=== PATIENT | male | born 1980 | race Caucasian/White ===

== ENCOUNTER 2016-07-08 08:41 | Emergency (ER) | payer MEDICAID ==
[~2016-07-08] VITALS: Wt 69.0 kg
[2016-07-08] MEDS ORDERED: ACETAMINOPHEN 500 MG TAB PO STA (09:08)
--- NOTE | 2016-07-08 09:13 | ERD ---
ER Documentation Chief Complaint Date/Time DATE: 07/08/16 TIME: 09:12 Chief Complaint COUGH AND CONGESTION WITH FEVER FOR 2 DAYS. NO EAR PAIN, SORE THROAT NOTED HPI Patient is a 35-year-old male who presents with cough, congestion and fever for 2 days. He states that he also has headache. Denies abdominal pain, nausea, vomiting, diarrhea or constipation. Is tolerating fluids and urinating well and has normal bowel movements. He states that he has taken Robitussin and Tylenol for his symptoms, with minimal relief. He denies neck pain, stiffness. Denies chest pain, shortness of breath or difficulty breathing. Denies leg pain or swelling. Denies sick contacts. No other complaints. ROS All systems reviewed and are negative except as per history of present illness. Medications Home Meds Active Scripts Benzonatate* (Tessalon Perle*) 100 Mg Capsule, 100 MG PO Q8H Y for COUGH for 14 Days, CAP Prov:SHOCOLETARIANLAURA PA-C 07/08/16 Acetaminophen* (Tylophen*) 500 Mg Capsule, 1 CAP PO Q6H Y for PAIN AND OR ELEVATED TEMP, #20 CAP Prov:EMPERATRIZRIANLAURA PA-C 07/08/16 Oseltamivir Phosphate* (Tamiflu*) 75 Mg Capsule, 75 MG PO BID for 5 Days, CAP Prov:LAURA OJEDA PA-C 07/08/16 Allergies Allergies: Coded Allergies: No Known Allergy (Unverified , 07/08/16) PMhx/Soc History of Surgery: No Anesthesia Reaction: No Hx Neurological Disorder: No Hx Respiratory Disorders: No Hx Cardiac Disorders: No Hx Psychiatric Problems: No Hx Miscellaneous Medical Probl: No Hx Alcohol Use: No Hx Substance Use: No Hx Tobacco Use: No Smoking Status: Never smoker Physical Exam Vitals Vital Signs Date Time Temp Pulse Resp B/P Pulse Ox O2 Delivery O2 Flow Rate FiO2 07/08/16 10:25 100.3 91 18 119/59 98 07/08/16 10:00 100.5 07/08/16 08:44 102.0 112 21 139/70 98 Physical Exam GENERAL: Well-developed, well-nourished male. Appears in no acute distress. HEAD: Normocephalic, atraumatic. EYES: Pupils are equally reactive bilaterally. EOMs grossly intact. No conjunctival erythema. ENT: Moist mucous membranes. No uvula deviation. No kissing tonsils. No exudates. Bilateral TMs clear with no erythema or drainage. No mastoid tenderness NECK: Supple. No lymphadenopathy or thyromegaly. No meningismus. negative kernig. negative brudinski. LUNG: Clear to auscultation bilaterally. No rhonchi, wheezing, rales or coarse breath sounds. No retractions. HEART: Regular rate and rhythm. No murmurs, rubs or gallops. ABDOMEN: No scars, ecchymosis or rashes noted. Soft, nontender, and nondistended. Positive bowel sounds in all four quadrants. No rebound tenderness , no guarding. (-) McBurneys point tenderness. No CVA tenderness. BACK: No midline tenderness. Extremities: Equal pulses bilaterally. No peripheral clubbing, cyanosis or edema. No unilateral leg swelling. NEUROLOGIC: Alert and oriented. Moving all four extremities. 5/5 strength in all extremities. Normal speech. Steady gait. SKIN: Normal color. Warm and dry. No rashes or lesions. Capillary refill < 2 seconds Results 24 hrs Current Medications Medications (Trade) Dose Ordered Sig/Tatiana Route PRN Reason Start Time Stop Time Status Last Admin Dose Admin Acetaminophen 1000 mg 1,000 mg ONCE STAT PO 07/08/16 09:08 07/08/16 09:12 DC 07/08/16 09:29 Sodium Chloride (NS) 1,000 ml @ 1,000 mls/hr Q1H ONCE IV 07/08/16 09:30 07/08/16 10:29 DC 07/08/16 09:29 Ibuprofen (Motrin) 600 mg ONCE ONCE PO 07/08/16 10:30 07/08/16 10:31 DC 07/08/16 10:10 Procedures/MDM ER COURSE: I kept the patient and/or family informed of laboratory and diagnostic imaging results throughout the emergency room course. PROCEDURES IV fluids, Tylenol, Motrin. Tolerated medication well and stated improvement in symptoms. No adverse reaction. Influenza a and B negative. MEDICAL DECISION MAKING: This is a 35-year-old male who presents with fever, cough, sore throat and body aches. Vital signs were reviewed. Patient is not hypoxic patient had a temperature of 102.0 with a pulse of 112 in the ED. After administration of Tylenol, temperature down trended to 100.5 and is trending downward. His tachycardia is likely related to his temperature. He was no longer tachycardic after fluid administration and medication. Patient likely has influenza-like illness. His lung examination was within normal limits and I do not think a chest x-ray is warranted at this time as he does not show signs of respiratory distress. Low suspicion for pneumonia, PE, pneumothorax, ACS, epiglottitis, obstruction, TB, pertussis, meningitis, sepsis. I reexamined patient after fluids were given, he stated improvement in symptoms and is ready to go home. He states that he feels much better. I have low suspicion for dehydration. DISCHARGE: At this time, patient is stable for discharge and outpatient management with no new complaints during the ER course. Patient was sent home with Tamiflu, Tylenol and Tessalon Perles. Patient will be discharged home with instructions to recheck for new or worsening symptoms such as fever, nausea, weakness, LOC and to follow up with primary care in the next 1-2 days. Patient was advised to return to the ER for any new or worsening symptoms. Plan was discussed and patient and/or family understands and agrees. Home instructions were given. Departure Diagnosis: Primary Impression: Influenza-like symptoms Condition: Stable LAURA OJEDA PA-C Jul 08, 2016 09:13
[2016-07-08] MEDS ORDERED: SOD CHLORIDE 0.9% 1,000 ML IV ONE (09:30)
[2016-07-08] MEDS ORDERED: OSLT75C PO (10:01)
[2016-07-08] MEDS ORDERED: ACET500C5 PO (10:01)
[2016-07-08] MEDS ORDERED: BENZ100C70 PO (10:02)
[2016-07-08 10:25] VITALS: BP 119/59; PULSE 91; RESP 18; TEMP 100.3
[2016-07-08] MEDS ORDERED: IBUPROFEN 600 MG TAB PO ONE (10:30)
== END 2016-07-08 10:25 | disposition home or self-care (01) ==
LOC: FTE 08:41
DX: R05 Cough (principal); R50.9 Fever, unspecified; R51 Headache
CPT/HCPCS: 87400; 96360; J7030; Z7502; Z7610